=== PATIENT | female | born 1995 | race Hispanic/Latino ===

== ENCOUNTER 2019-06-06 11:08 | Emergency (ER) | payer BC, OTHER ==
--- NOTE | 2019-06-06 11:14 | Emergency Department Report ---
Blank Doc - Documentation Documentation: 23-year-old female that presents with right foot pain after kicking wall. This initial assessment/diagnostic orders/clinical plan/treatment(s) is/are subject to change based on patient's health status, clinical progression and re- assessment by fellow clinical providers in the ED. Further treatment and workup at subsequent clinical providers discretion. Patient/guardians urged not to elope from the ED as their condition may be serious if not clinically assessed and managed. Initial orders include: 1- Patient sent to [facility] for further evaluation and treatment 2- xrays
[2019-06-06 11:15] VITALS: BP 146/87
--- NOTE | 2019-06-06 11:57 | XRay Report ---
PORTABLE RIGHT FOOT 3 VIEWS INDICATION / CLINICAL INFORMATION: Right foot pain. COMPARISON: None available. FINDINGS: BONES / JOINT(S): The joint spaces are well-maintained. There is no evidence of fracture, dislocation , destructive lesion or other significant abnormality. SOFT TISSUES: No significant abnormality. ADDITIONAL FINDINGS: None. IMPRESSION: Negative study. Signer Name: Koko La MD Signed: 06/06/2019 11:52 AM Workstation Name: [id number]
--- NOTE | 2019-06-06 12:08 | Emergency Department Report ---
HPI - General Chief Complaint: Extremity Injury, Lower Time Seen by Provider: 06/06/19 11:12 - HPI HPI: 23-year-old female presents to the emergency department with the complaint of a one-week history of right foot pain that appears to be mostly in the top of her midfoot. This has been going on since the patient kicked a wall in anger while being barefoot. No obvious deformity. She is able to ambulate but has some pain with doing so. She has not taken anything for her symptoms today prior to arrival. She is an employee at this hospital. Denies any other past medical history. ED Past Medical Hx - Past Medical History Previous Medical History?: No - Surgical History Past Surgical History?: No - Social History Smoking Status: Never Smoker Substance Use Type: None - Medications Home Medications: Home Medications Medication Instructions Recorded Confirmed Last Taken Type Azithromycin [Zithromax Z-KEVIN] 250 mg PO DAILY #6 tab 08/08/15 Unknown Rx Butalbit/Acetamin/Caff/Codeine 1 cap PO Q8HR PRN #15 cap 08/08/15 Unknown Rx [Fioricet/Codeine [id number]] ED Review of Systems ROS: Stated complaint: RT FOOT PAIN/BRUISED Other details as noted in HPI Comment: All other systems reviewed and negative Constitutional: denies: chills, fever Musculoskeletal: arthralgia. denies: joint swelling Skin: denies: rash, lesions Neurological: denies: numbness, paresthesias Physical Exam - Physical Exam Vital Signs: Vital Signs 06/06/19 11:12 Temperature 98.3 F Pulse Rate 109 H Respiratory 18 Rate Blood Pressure 146/87 O2 Sat by Pulse 98 Oximetry Physical Exam: GENERAL: The patient is well-developed well-nourished. HENT: Normocephalic. Atraumatic. Patient has moist mucous membranes. EYES: Extraocular motions are intact. NECK: Supple. Trachea is midline. CHEST/LUNGS: Clear to auscultation. There is no respiratory distress noted. HEART/CARDIOVASCULAR: Regular. There is no tachycardia. There is no murmur. ABDOMEN: There is no abdominal distention. SKIN: Skin is warm and dry. NEURO: The patient is awake, alert, and oriented. The patient is cooperative. Normal speech. MUSCULOSKELETAL: There is some reproducible tenderness to palpation to the dorsal right midfoot but no obvious deformity.. There is no limitation range of motion. +2 over 4 pedal pulse and capillary refill less than 2 seconds to the affected right foot. ED Course Vital Signs 06/06/19 11:12 Temperature 98.3 F Pulse Rate 109 H Respiratory 18 Rate Blood Pressure 146/87 O2 Sat by Pulse 98 Oximetry ED Medical Decision Making - Radiology Data Radiology results: image reviewed interpreted by me: X-ray of the right foot did not show any fracture, dislocation or any acute process. - Medical Decision Making Patient kicked a wall while barefoot about one week ago and has been having some pain to the dorsal right midfoot. X-ray did not show any fracture, dislocation or any acute process. The patient will be given a postop surgical sandal and a referral for podiatry. - Differential Diagnosis fracture, dislocation, contusion, sprain Critical Care Time: No Critical care attestation.: If time is entered above; I have spent that time in minutes in the direct care of this critically ill patient, excluding procedure time. ED Disposition Clinical Impression: Right foot pain Contusion, foot Qualifiers: Encounter type: initial encounter Laterality: right Qualified Code(s): S90.31XA - Contusion of right foot, initial encounter Disposition: - TO HOME OR SELFCARE Is pt being admited?: No Condition: Stable Instructions: Foot Contusion (ED), Arthralgia (ED) Additional Instructions: I'm giving you a referral for a local java groovy developer, Dr. Mcqueen, to follow up regarding your foot pain. Return to the emergency department with any worsening of your symptoms or any acute distress. Referrals: ROSE MCQUEEN DPM [Staff Physician] - 2-3 Days Time of Disposition: 12:08
== END 2019-06-06 12:20 | disposition home or self-care (01) ==
LOC: ED 11:08
DX: S90.31XA Contusion of right foot, initial encounter (principal); Z79.899 Other long term (current) drug therapy; W22.01XA Walked into wall, initial encounter; Y93.89 Activity, other specified; Y92.89 Other specified places as the place of occurrence of the external cause; Y99.8 Other external cause status

== ENCOUNTER 2021-07-07 23:36 | Inpatient (IN) | payer BC ==
[2021-07-07 21:48] LABS: Hematocrit 31.9 % (30.3-42.9); Hemoglobin 10.4 gm/dl (10.1-14.3); Mean Corpuscular HGB Conc 33 % (30-34); Mean Corpuscular Volume 87 fl (79-97); Platelet Count 249 K/mm3 (140-440); Red Blood Count 3.66 M/mm3 (3.65-5.03); Red Cell Distribution Width 14.7 % (13.2-15.2)
[~2021-07-07 23:36] MED LIST: ACETAMINOPHEN 325 MG TAB PO PRN; BUTORPHANOL 2 MG/1 ML INJ IV PRN; CARBOPROST TROMETHAMINE 250 MCG/1 ML INJ IM PRN; LACTATED RINGERS 1,000 ML ONE; LIDOCAINE (2%) 20 MG/1 ML VIAL 20 ML MDV INFILTRATI ONE; LOPERAMIDE 2 MG CAP PO PRN; METHYLERGONOVINE MALEATE 0.2 MG/ML VIAL IM PRN; MINERAL OIL 30 ML ORAL LIQD PO PRN; ONDANSETRON 4 MG/2 ML INJ IV PRN; OXYTOCIN 10 UNIT/1 ML INJ IM PRN; OXYTOCIN DRIP 30 UNITS/500 ML BAG IV SCH; OXYTOCIN DRIP 30,000 MILLIUNITS/500 ML BAG IV ONE; TERBUTALINE 1 MG/1 ML INJ SUB-Q PRN; ePHEDrine SULFATE 50 MG/1 ML INJ IV PRN; miSOPROStol 200 MCG TAB PR PRN
[2021-07-08] MEDS: LACTATED RINGERS 1,000 ML IV SCH ×2 (02:08→05:04)
[2021-07-08] MEDS ORDERED: ePHEDrine SULFATE 50 MG/1 ML INJ IV PRN (04:42)
[2021-07-08] MEDS ORDERED: NALOXONE 2 MG/2 ML INJ IV PRN (04:42)
--- NOTE | 2021-07-08 04:42 | Anesthesia Consultation ---
Anesthesia Consult and Med Hx Date of service: 07/08/21 - Airway Anesthetic Teeth Evaluation: Good ROM Head & Neck: Adequate Mental/Hyoid Distance: Adequate Mallampati Class: Class II Intubation Access Assessment: Probably Good - Pulmonary Exam CTA: Yes - Cardiac Exam Cardiac Exam: RRR - Pre-Operative Health Status ASA Pre-Surgery Classification: ASA2 Proposed Anesthetic Plan: Epidural - Pulmonary Hx Asthma: No - Cardiovascular System Hx Hypertension: No - Central Nervous System Hx Seizures: No Hx Psychiatric Problems: Yes (depression) - Endocrine Hx Renal Disease: No Hx Hypothyroidism: No Hx Hyperthyroidism: No - Hematic Hx Anemia: No Hx Sickle Cell Disease: No - Other Systems Hx Alcohol Use: No
[2021-07-08] MEDS ORDERED: fentaNYL-BUPIV 2 MCG/ML-0.125% 200 MCG/100 ML BAG EPIDURAL SCH (05:00)
--- NOTE | 2021-07-08 05:01 | Progress Note ---
Labor Epidural - Labor Epidural Start Time: 04:31 Stop Time: 04:35 Performed by:: TEE CHEN Procedure: Patient is requesting epidural for labor pain. H&P, and labs reviewed. Procedure explained, questions answered, consent obtained. Patient in sitting position with blood pressure cuff and pulse ox on and working. Timeout performed immediately before start of procedure. Sterile Duraprep prep/drape. 5 mL 1% lidocaine skin wheal at L[3]-L[4]. 17-gauge tuohy epidural needle advanced to [id number] with saline at [7] cm. Epidural dexmedetomidine [30] mcg administered. Epidural catheter advanced to [12] cm, negative aspiration for blood and csf, negative test dose 3 ml 1.5% lidocaine with epinephrine. Sterile sponge and tegaderm applied, followed by tape reinforcement. Patient tolerated procedure well.
[2021-07-08] MEDS ORDERED: LIDOCAINE (2%) 20 MG/1 ML VIAL 20 ML MDV INFILTRATI ONE (06:11)
--- NOTE | 2021-07-08 06:36 | History and Physical Report ---
History of Present Illness Date of examination: 07/08/21 Date of admission: 07/07/2021 Chief complaint: I'm having contractions History of present illness: Pt is a 25 year old who presents at 39.4 weeks with regular contractions with EDC 07/11/2021. Pt's course was complicated by gestational diabetes. All labs are normal. She is GBS negative. Pt was scheduled for induction of labor on this evening but began stephane prior to start of induction. Past History Past Medical History: no pertinent history Past Surgical History: no surgical history Family/Genetic History: none Social history: - Obstetrical History Expected Date of Delivery: 07/11/21 Actual Gestation: 39 Week(s) 4 Day(s) : 1 Para: 0 Medications and Allergies Allergies Allergy/AdvReac Type Severity Reaction Status Date / Time No Known Allergies Allergy Verified 08/08/15 00:35 Home Medications Medication Instructions Recorded Confirmed Last Taken Type Azithromycin [Zithromax Z-KEVIN] 250 mg PO DAILY #6 tab 08/08/15 Unknown Rx Butalbit/Acetamin/Caff/Codeine 1 cap PO Q8HR PRN #15 cap 08/08/15 Unknown Rx [Fioricet/Codeine [id number]] Active Meds: Active Medications Acetaminophen (Acetaminophen 325 Mg Tab) 650 mg PO Q4H PRN PRN Reason: Pain, Mild (1-3) Butorphanol Tartrate (Butorphanol 2 Mg/1 Ml Inj) 1 mg IV Q2H PRN PRN Reason: Pain, Moderate(4-6) LABOR PAIN Last Admin: 07/08/21 00:05 Dose: 1 mg Documented by: Butorphanol Tartrate (Butorphanol 2 Mg/1 Ml Inj) 2 mg IV Q2H PRN PRN Reason: Pain , Severe (7-10) Last Admin: 07/08/21 02:09 Dose: 2 mg Documented by: Carboprost Tromethamine (Carboprost Tromethamine 250 Mcg/1 Ml Inj) 250 mcg IM ONCE PRN PRN Reason: Uterine Bleeding Ephedrine Sulfate (Ephedrine Sulfate 50 Mg/1 Ml Inj) 10 mg IV Q2M PRN PRN Reason: Hypotension Oxytocin/Sodium Chloride (Pitocin/Ns 30 Unit/500ml) 30 units in 500 mls @ 2 mls/hr IV TITR SONDRA; Protocol Last Admin: 07/07/21 21:10 Dose: 2 ml/hr, 2 mls/hr Documented by: Lactated Ringer's (Lactated Ringers) 1,000 mls @ 125 mls/hr IV DIRECT SONDRA Last Admin: 07/08/21 05:04 Dose: 125 mls/hr Documented by: Oxytocin/Sodium Chloride (Pitocin/Ns 30 Unit/500ml) 30 units in 500 mls @ 40 mls/hr IV TITR SONDRA; Protocol Fentanyl/Bupivacaine/Sodium Chlor (Fentanyl-Bupiv 2 Mcg/Ml-0.125%) 200 mcg in 100 mls @ 12 mls/hr EPIDURAL TITR SONDRA; Protocol Last Admin: 07/08/21 05:04 Dose: 12 mls/hr Documented by: Loperamide HCl (Loperamide 2 Mg Cap) 2 mg PO ONCE PRN PRN Reason: give with Hemabate Methylergonovine Maleate (Methylergonovine Maleate 0.2 Mg/Ml Vial) 0.2 mg IM ONCE PRN PRN Reason: Uterine Bleeding Mineral Oil (Mineral Oil 30 Ml Oral Liqd) 30 ml PO QHS PRN PRN Reason: Constipation Misoprostol (Misoprostol 200 Mcg Tab) 800 mcg ME ONCE PRN PRN Reason: Uterine Bleeding Naloxone HCl (Naloxone 2 Mg/2 Ml Inj) 0.2 mg IV Q5M PRN PRN Reason: Respiratory sedation Ondansetron HCl (Ondansetron 4 Mg/2 Ml Inj) 4 mg IV Q8H PRN PRN Reason: Nausea And Vomiting Oxytocin (Oxytocin 10 Unit/1 Ml Inj) 10 unit IM ONCE PRN PRN Reason: Uterine Bleeding Terbutaline Sulfate (Terbutaline 1 Mg/1 Ml Inj) 0.25 mg SUB-Q ONCE PRN PRN Reason: Hyperstimulation/Hypertonicity Review of Systems All systems: negative Constitutional: weight gain Genitourinary: contractions Rectal Exam: deferred - Vital Signs Vital signs: Vital Signs Pulse Pulse Ox 111 H 98 07/07/21 17:01 07/07/21 17:01 Temp Pulse Resp BP Pulse Ox 98.5 F 100 H 90/55 97 07/07/21 17:06 07/08/21 04:53 07/08/21 04:53 07/07/21 17:31 - Physical Exam Breasts: Positive: deferred Cardiovascular: Regular rate, Normal S1, Normal S2 Lungs: Positive: Clear to auscultation, Normal air movement Abdomen: Positive: normal appearance, soft, normal bowel sounds Genitourinary (Female): Positive: normal external genitalia, normal perenium Vulva: both: normal Vagina: Positive: normal moisture Uterus: Positive: normal size, normal contour Adnexa: both: normal Anus/Rectum: Positive: normal perianal skin Extremities: Positive: normal - Obstetrical FHR: auscultation normal Cervical Dilatation: 2 Cervical Effacement Percentage: 50 station: -2 Uterine Contraction Pattern: Regular Uterine Contraction Intensity: Moderate Results Result Diagrams: 07/07/21 21:13 All other labs normal. Assessment and Plan IUP at 39.4 weeks in active labor. Admit to L&D. Augment if needed. AROM when able. Pt may have epidural. Anticipate .
--- NOTE | 2021-07-08 11:45 | Procedure Note ---
OB Delivery Note - Delivery Date of Delivery: 07/08/21 Surgeon: JOHANNA YOU Estimated blood loss: 300cc - Vaginal Delivery presentation: vertex Delivery position: OA Intrapartum events: meconium Delivery augmentation: rupture of membranes, pitocin Delivery monitor: external FHT, external uterine Route of delivery: Delivery placenta: spontaneous Delivery cord: nuchal cord, 3 umbilical vessels Episiotomy: none Delivery laceration: 2nd degree Delivery repair: vicryl Anesthesia: epidural Delivery comments: Viable male delivered over intact perineum with loose nuchal cord and spontaneous cry at 11:08 am. apgars 9,9. Weight 7 pounds 6 ounces. Placenta delivered spontaneously and intact with 3vc. 2nd degree laceration repaired with 2.0 vicryl. Good hemostasis,. Pt tolerated procedure well. - Infant A at 1 minute: 8 at 5 minutes: 9 Infant Gender: Male (7 pounds 6 ounces)
[2021-07-08] MEDS ORDERED: diphenhydrAMINE 25 MG CAP PO PRN (13:43)
[2021-07-08] MEDS ORDERED: PROMETHAZINE 25 MG TAB PO PRN (13:43)
[2021-07-08] MEDS ORDERED: miSOPROStol 100 MCG TAB PR PRN (13:43)
[2021-07-08] MEDS ORDERED: WITCH HAZEL/ GLYCERIN PAD TP PRN (13:43)
[2021-07-08] MEDS ORDERED: LANOLIN/ZINC/DIMETHICONE (LANSINOH) 7 GM TP PRN (13:43)
[2021-07-08] MEDS ORDERED: MAGNESIUM HYDROXIDE (MOM) ORAL LIQD UDC PO PRN (13:43)
[2021-07-08] MEDS ORDERED: HYDROcodone/ACETAMINOPHEN 5-325 MG TAB PO PRN (13:43)
[2021-07-08] MEDS ORDERED: PROMETHAZINE 25 MG RECT SUPP PR PRN (13:43)
[2021-07-08] MEDS ORDERED: ONDANSETRON 4 MG/2 ML INJ IV PRN (13:43)
[2021-07-08] MEDS: IBUPROFEN 600 MG TAB PO SCH ×2 (15:34→22:28)
[2021-07-08] MEDS: DOCUSATE SODIUM 100 MG CAP PO SCH (22:28)
[2021-07-09 00:11] LABS: Hematocrit 26.7 % (30.3-42.9); Hemoglobin 8.5 gm/dl (10.1-14.3)
[2021-07-09] MEDS: IBUPROFEN 600 MG TAB PO SCH ×2 (08:30→15:28)
--- NOTE | 2021-07-09 09:03 | Discharge Summary ---
Providers - Providers Date of Admission: 07/08/21 09:00 Date of discharge: 07/09/21 Attending physician: JOHANNA YOU Primary care physician: JOHANNA YOU Hospitalization Reason for admission: active labor Delivery: Episiotomy: none Laceration: 2nd degree Other procedures: none complications: none Discharge diagnosis: IUP at term delivered baby: male Hospital course: unremarkable Condition at discharge: Good Disposition: 01 HOME / SELF CARE / HOMELESS Plan - Discharge Medications Prescriptions: Ibuprofen [Motrin] 800 mg PO Q8HR PRN #40 tablet PRN Reason: Pain, Mild (1-3) HYDROcodone/APAP 5-325 [T[place]une 5/325] 1 each PO Q6HR PRN #15 tablet PRN Reason: Pain - Provider Discharge Summary Activity: routine, no sex for 6 weeks, no heavy lifting 4 weeks, no strenuous exercise Diet: routine Instructions: routine Additional instructions: [] Smoking cessation referral if applicable(refer to patient education folder for contact #) [] Refer to [facility]'s [facility] Booklet Call your doctor immediately for: * Fever > 100.5 * Heavy vaginal bleeding ( >1 pad per hour) * Severe persistent headache * Shortness of breath * Reddened, hot, painful area to leg or breast * Drainage or odor from incision. * Keep incision clean and dry at all times and follow doctor's instructions regarding bathing/showering - Follow up plan Follow up: JOHANNA YOU MD [Primary Care Provider] - 6 Weeks
--- NOTE | 2021-07-09 09:50 | Post Anesthesia Evaluation ---
- Post Anesthesia Evaluation Patient Participated: Yes Airway Patent: Yes Stable Respiratory Function: Yes Nausea/Vomiting: No Temp > 96.8F: Yes Pain Manageable: Yes Adequeate Hydration: Yes Anesthesia Complications: No Block Receding Appropriately: Yes Patient on Ventilator: No
[2021-07-09] MEDS ORDERED: PRENATAL VIT27-FE FUMARATE-FOLIC ACID VIT TAB PO SCH (10:00)
[2021-07-09] MEDS: DOCUSATE SODIUM 100 MG CAP PO SCH (10:05)
[2021-07-09] MEDS ORDERED: BENZOCAINE/MENTHOL 20/0.5% TOP SPRAY 56 GM TP PRN (10:30)
[2021-07-09] MEDS ORDERED: TETANUS,DIPH,PERTUSS(ACELL) VACCINE 0.5 ML SYRINGE IM ONE (15:14)
[2021-07-09 16:02] VITALS: BP 123/67
== END 2021-07-09 18:34 | disposition home or self-care (01) | DRG 807 ==
LOC: TRG 23:36 → APU 23:36 → LD 23:36 → TRG 07-08 08:40 → LD 07-08 08:50 → UNDOADMIN 07-08 08:50 → OB 07-08 09:00 → LD 07-08 13:24
PROVIDERS: ADMIT Obstetrics & Gynecology; ATTEND Obstetrics & Gynecology
PROC: 10E0XZZ Delivery of Products of Conception, External Approach (ICD-10-PCS; principal; 2021-07-08)
PROC: 0KQM0ZZ Repair Perineum Muscle, Open Approach (ICD-10-PCS; 2021-07-08)
PROC: 3E0R3BZ Introduction of Anesthetic Agent into Spinal Canal, Percutaneous Approach (ICD-10-PCS; 2021-07-08)
PROC: 00HU33Z Insertion of Infusion Device into Spinal Canal, Percutaneous Approach (ICD-10-PCS; 2021-07-08)
PROC: 3E0234Z Introduction of Serum, Toxoid and Vaccine into Muscle, Percutaneous Approach (ICD-10-PCS; 2021-07-09)
DX: O69.81X0 Labor and delivery complicated by cord around neck, without compression, not applicable or unspecified (principal); Z37.0 Single live birth; Z3A.39 39 weeks gestation of pregnancy; Z20.822 Contact with and (suspected) exposure to COVID-19; O99.344 Other mental disorders complicating childbirth; F32.9 Major depressive disorder, single episode, unspecified; O77.0 Labor and delivery complicated by meconium in amniotic fluid; O70.1 Second degree perineal laceration during delivery; Z23 Encounter for immunization
CPT/HCPCS: 36415; 82962; 85014; 85018; 85027; 86592; 86850; 86900; 86901; 90715; 99211; G0378; J3490; G0463; J0595; J2405; J2590; J7120; U0003